=== PATIENT | male | born 1970 | race Caucasian/White ===

== ENCOUNTER 2016-06-17 09:18 | Day surgery (SDC) | payer OTHER ==
--- NOTE | ~2016-06-17 | EGD ---
EGD REPORT [facility] [address] [address] NAME: MICHAEL DIAZ : [birth year] STATUS : REG [facility]#: [id number] AGE: 45 ADM/REG DATE : 06/17/16 MR#: [id number] REPORT SERV DATE: 06/17/16 DICTATED BY: RASHEED MORATAYA DATE: 06/17/16 REPORT STATUS : Draft TRANSCRIBED BY: [employer] DATE: 06/17/16 [facility] Patient Name: Michael Diaz Date of : 1970 Attending MD: RASHEED MORATAYA MD Procedure Date No Time: 06/17/2016 Procedure: Colonoscopy Indications: Screening for colon cancer: Colorectal cancer in distant relative(s) Referring MD: LISA BAKER Medicines: Monitored Anesthesia Care Complications: No immediate complications. Procedure: Pre-Anesthesia Assessment: - ASA Grade Assessment: III - A patient with severe systemic disease. After I obtained informed consent, the scope was passed under direct vision. Throughout the procedure, the patient's blood pressure, pulse, and oxygen saturations were monitored continuously. The CF [id number] was introduced through the anus and advanced to the terminal ileum, with identification of the appendiceal orifice and IC valve. The colonoscopy was performed without difficulty. The patient tolerated the procedure well. The quality of the bowel preparation was good. Findings: The digital rectal exam was normal. The terminal ileum appeared normal. A sessile polyp was found in the cecum. The polyp was 8 mm in size. The polyp was removed with a cold biopsy forceps. Resection and retrieval were complete. A sessile polyp was found in the sigmoid colon. The polyp was 10 mm in size. The polyp was removed with a cold snare. Resection and retrieval were complete. A sessile polyp was found in the rectum. The polyp was 5 mm in size. The polyp was removed with a cold biopsy forceps. Resection and retrieval were complete. Hemorrhoids were found during retroflexion and were mild. Diverticula were found in the sigmoid colon and in the descending colon. Impression: - The examined portion of the ileum was normal. - One 8 mm polyp in the cecum. Resected and retrieved. - One 10 mm polyp in the sigmoid colon. Resected and retrieved. - One 5 mm polyp in the rectum. Resected and retrieved. EGD REPORT [address] [place] [id number] [place]. [address] NAME: MICHAEL DIAZ : [birth year] STATUS : REG [facility]#: [id number] AGE: 45 ADM/REG DATE : 06/17/16 MR#: [id number] REPORT SERV DATE: 06/17/16 DICTATED BY: RASHEED MORATAYA DATE: 06/17/16 REPORT STATUS : Draft TRANSCRIBED BY: [employer] DATE: 06/17/16 - Hemorrhoids. Recommendation: - Patient has a contact number available for emergencies. The signs and symptoms of potential delayed complications were discussed with the patient. Return to normal activities tomorrow. Written discharge instructions were provided to the patient. - Regular diet. - Continue present medications. - Await pathology results. - Repeat colonoscopy in 3 - 5 years for surveillance based on pathology results. - Return to GI clinic PRN. Procedure Code(s): --- Professional --- 37660, Colonoscopy, flexible, proximal to splenic flexure; with removal of tumor(s), polyp(s), or other lesion(s) by snare technique 14114, 59, Colonoscopy, flexible, proximal to splenic flexure; with biopsy, single or multiple Diagnosis Code(s): --- Professional --- K64.9, Unspecified hemorrhoids K62.1, Rectal polyp D12.5, Benign neoplasm of sigmoid colon D12.0, Benign neoplasm of cecum Z12.11, Encounter for screening for malignant neoplasm of colon Z80.0, Family history of malignant neoplasm of digestive organs CPT copyright 2013 [employer]. All rights reserved. The codes documented in this report are preliminary and upon staffing rn review may be revised to meet current compliance requirements. RASHEED MORATAYA MD 06/17/2016 11:20 AM This report has been signed electronically. Number of Addenda: 0 Note Initiated On: 06/17/2016 10:42 AM Scope Withdrawal Time 0 hours 14 minutes 59 seconds [address] [id number]
[~2016-06-17 09:18] MED LIST: ACET500CAP PO; FISH-EPA1000 MG PO; LISINOPRIL40 MG PO; SINGULAIR1 PO; ZANTAC 75 PO; ZOL100 PO; ZYRTEC ALLGY10 MG PO
== END 2016-06-17 23:59 | disposition home or self-care (01) ==
LOC: DMU 09:18
PROVIDERS: Internal Medicine Gastroenterology
PROC: 0DBN8ZZ Excision of Sigmoid Colon, Via Natural or Artificial Opening Endoscopic (ICD-10-PCS; 2016-06-17)
PROC: 0DBH8ZZ Excision of Cecum, Via Natural or Artificial Opening Endoscopic (ICD-10-PCS; principal; 2016-06-17 11:00)
PROC: 0DBP8ZZ Excision of Rectum, Via Natural or Artificial Opening Endoscopic (ICD-10-PCS; 2016-06-17 11:00)
DX: Z12.11 Encounter for screening for malignant neoplasm of colon (principal); D12.0 Benign neoplasm of cecum; K63.5 Polyp of colon; K62.1 Rectal polyp; K64.9 Unspecified hemorrhoids; K57.30 Diverticulosis of large intestine without perforation or abscess without bleeding; I10 Essential (primary) hypertension; G47.33 Obstructive sleep apnea (adult) (pediatric); E66.01 Morbid (severe) obesity due to excess calories; Z68.42 Body mass index [BMI] 45.0-49.9, adult; Z88.0 Allergy status to penicillin; Z79.899 Other long term (current) drug therapy
CPT/HCPCS: 88305